=== PATIENT | female | born 1985 | race African-American/Black ===

== ENCOUNTER 2021-02-28 18:31 | Emergency (ER) | payer BC ==
[~2021-02-28] VITALS: Ht 167.6 cm; Wt 124.0 kg
[2021-02-28 18:43] VITALS: BP 145/87
[2021-02-28] MEDS ORDERED: TRIA15OI TP (18:56)
--- NOTE | 2021-02-28 18:59 | PHYS DOC ---
Past History Additional Past Medical Histor: PCOS (FIDENCIO RON APRN) Past Surgical History: No Surgical History (FIDENCIO RON APRN) Alcohol Use: None (FIDENCIO RON APRN) General Adult EDM: Chief Complaint: SKIN PROBLEM HPI: HPI: Patient is a 35-year-old female who presents to the ER for a blister that she noticed 90 minutes to arrival from her left upper arm. Patient states that she is unsure if she got stung by something. Patient denies any new exposures. No treatment prior to arrival. Patient denies any shortness of breath, difficulty swallowing or maintaining secretions, fevers. (FIDENCIO RON APRN) Review of Systems: Review of Systems: 14 body systems of the review of systems have been reviewed. See HPI for pertinent positive and negative responses, otherwise all other systems are negative, nonpertinent or noncontributory (FIDENCIO RON APRN) Allergies: Allergies: Allergies Coded Allergies Type Severity Reaction Last Updated Verified JAMIE Inhibitors Allergy Unknown 02/28/21 Yes azithromycin Allergy Unknown 02/28/21 Yes erythromycin base Allergy Unknown 02/28/21 Yes (FIDENCIO RON APRN) Physical Exam: PE: Constitutional: Well developed, well nourished, no acute distress, non-toxic appearance. [] HENT: Normocephalic, atraumatic Eyes: PERRL, EOMI, conjunctiva normal, no discharge. [] Neck: Normal range of motion, no stridor Cardiovascular: Normal peripheral perfusion Lungs & Thorax: Normal work of breathing, no tachypnea Abdomen: Obese, soft Skin: Warm, dry, 1.5 cm vesicle noted to patient's left upper arm with redness surrounding that is approximately 4 cm in diameter Back: No tenderness, no CVA tenderness. [] Extremities: No tenderness, no cyanosis, no clubbing, ROM intact, no edema. [] Neurologic: Alert and oriented X 3, normal motor function, normal sensory function, no focal deficits noted. [] Psychologic: Affect normal, judgement normal, mood normal. [] (FIDENCIO RON APRN) Current Patient Data: Vital Signs: Vital Signs Date Time Temp Pulse Resp B/P (MAP) Pulse Ox O2 Delivery O2 Flow Rate FiO2 02/28/21 18:43 98.4 94 16 145/87 (106) 97 Room Air (FIDENCIO RON APRN) EKG: EKG: [] (FIDENCIO RON APRN) Radiology/Procedures: Radiology/Procedures: [] (FIDENCIO RON APRN) Heart Score: C/O Chest Pain: N/A Risk Factors: Risk Factors: DM, Current or recent (<one month) smoker, HTN, HLP, family history of CAD, obesity. Risk Scores: Score 0 - 3: 2.5% MACE over next 6 weeks - Discharge Home Score 4 - 6: 20.3% MACE over next 6 weeks - Admit for Clinical Observation Score 7 - 10: 72.7% MACE over next 6 weeks - Early Invasive Strategies (FIDENCIO RON APRN) Course & Med Decision Making: Course & Med Decision Making Pertinent Labs and Imaging studies reviewed. (See chart for details) [] Patient is a 35-year-old female who presents to the ER for a blister to her left outer arm. She is unsure if she was bit by something. It is likely that she is experiencing a localized reaction to insect bite. Patient advised to take Benadryl for itching. Patient will be discharged home with a steroid cream that she can use. Patient is a diabetic. I discussed with patient all findings and diagnostic testing as well as the need to follow-up with PCP for further evaluation and treatment or return to the ER if any new or worsening symptoms. Strict return precautions were also discussed at length. Patient voiced understanding and agreement with the plan. Patient is hemodynamically stable at the time of disposition. (FIDENCIO RON APRN) Course & Med Decision Making I was the Attending physician on the above date of service of this patient. This patient was evaluated, examined, treated, and dispositioned from the emergency department by the mid-level practitioner. Although I was working at the time , no assistance was requested. Electronically signed, Carter Rosen DO (CARTER ROSEN DO) Myles Disclaimer: Myles Disclaimer: This electronic medical record was generated, in whole or in part, using a voice recognition dictation system. (FIDENCIO RON APRN) Departure Departure: Impression: Primary Impression: Blister Disposition: HOME / SELF CARE / HOMELESS Condition: GOOD Referrals: NON,STAFF (PCP) Patient Instructions: Insect Sting Allergy Additional Instructions: You were seen in the ER today for a blister noted to your left upper arm. It is likely that you were bitten or stung by an insect and you are having a local reaction to it. You are being discharged home with a topical steroid you can apply twice a day. If you have itching you can take Benadryl at home. You can keep a dressing in place. Do not pop your blister that should pop on its own. Monitor for worsening of your symptoms, high fevers refractory to treatment, intractable nausea or vomiting, shortness of breath or difficulty swallowing. EMERGENCY DEPARTMENT GENERAL DISCHARGE INSTRUCTIONS Thank you for coming to [facility] (ED) today and trusting us with you care. We trust that you had a positivie experience in our Emergency Department. If you wish to speak to the department management, you may call the director at [phone]. YOUR FOLLOW UP INSTRUCTIONS ARE FOLLOWS: 1. Do you have a private Doctor? If you do not have a private doctor, please ask for a resource list of physicians or clinics that may be able to assist you with follow up care. 2. The Emergency Physician has interpreted your x-rays. The X-Ray specialist will also review them. If there is a change in the findings, you will be notified in 48 hours when at all possible. 3. A lab test or culture has been done, your results will be reviewed and you will be notified if you need a change in treatment. ADDITIONAL INSTRUCTIONS AND INFORMATION: 1. Your care today has been supervised by a physician who is specially trained in emergency care. Many problems require more than one evaluation for a complete diagnosis and treatment. We recommend that you schedule your follow up appointment as recommended to ensure complete treatment of you illness or injury. If you are unable to obtain follow up care and continue to have a problem, or if your condition worsens, we recommend that you return to the ED. 2. We are not able to safely determine your condition over the phone nor are we able to give sound medical advice over the phone. For these safety reasons, if you call for medical advice we will ask you to come to the ED for further evaluation. 3. If you have any questions regarding these discharge instructions please call the ED at [phone]. SAFETY INFORMATION: In the interest of safety, wellness, and injury prevention; we encourage you to wear your sealbelt, if you smoke; quite smoking, and we encourage family to use a protective helmet for bicycling and other sporting events that present an increased risk for head injury. IF YOUR SYMPTOMS WORSEN OR NEW SYMPTOMS DEVELOP, OR YOU HAVE CONCERNS ABOUT YOUR CONDITION; OR IF YOUR CONDITION WORSENS WHILE YOU ARE WAITING FOR YOUR FOLLOW UP APPOINTMENT; EITHER CONTACT YOUR PRIMARY CARE DOCTOR, THE PHYSICIAN WHOSE NAME AND NUMBER YOU WERE GIVEN, OR RETURN TO THE ED IMMEDIATELY. Scripts Triamcinolone Acetonide (TRIAMCINOLONE ACETONIDE 0.1% OINT) 15 Gm Oint...g. 1 WILFREDO TP BID for insect bite allergy for 10 Days, #20 EACH 0 Refills Prov: FIDENCIO RON APRN 02/28/21 FIDENCIO RON APRN Feb 28, 2021 18:59 CARTER ROSEN DO Feb 28, 2021 20:16
== END 2021-02-28 19:25 | disposition home or self-care (01) ==
LOC: ER 18:31
DX: S40.821A Blister (nonthermal) of right upper arm, initial encounter (principal); Z88.1 Allergy status to other antibiotic agents; Z88.8 Allergy status to other drugs, medicaments and biological substances; X58.XXXA Exposure to other specified factors, initial encounter; Y93.89 Activity, other specified; Y92.89 Other specified places as the place of occurrence of the external cause; Y99.8 Other external cause status
CPT/HCPCS: 99283